=== PATIENT | female | born 1955 | race Caucasian/White ===

== ENCOUNTER → 2021-02-07 | Outpatient (CLI) | payer MEDICARE ==
--- NOTE | 2021-02-07 15:51 | REP ---
INDICATION: RIGHT UPPER QUADRANT ABDOMINAL TENDERNESS-LAB FIRST. COMPARISON: None. TECHNIQUE: Two AP views abdomen and pelvis. FINDINGS: No significantly dilated bowel loops are seen. There is no evidence of bowel obstruction. Multiple small phleboliths are seen in the pelvis. There are mild degenerative changes of the spine. IMPRESSION: No evidence of bowel obstruction. <Electronically signed by Ivan Kemp > 02/07/21 [id number]
[2021-02-07 16:15] LABS: BASO % 0.5 % (0.0-1.0); EOS % 0.5 % (0.0-3.0); HEMATOCRIT 40.6 % (36.0-47.0); HEMOGLOBIN 13.6 g/dl (12.0-15.5); LYMPH # 1.5 10^3/uL (1.5-5.0); LYMPH % 23.3 % (24.0-44.0); MEAN CORPUSCULAR HEMOGLOBIN 30.5 pg (27.0-33.0); MEAN CORPUSCULAR HGB CONC 33.5 g/dl (32.0-36.5); MONO # 0.5 10^3/uL (0.0-0.8); MONO % 7.7 % (2.0-8.0); NEUTROPHILS # 4.4 10^3/uL (1.5-8.5); NEUTROPHILS % 67.4 % (36.0-66.0); PLATELET COUNT, AUTOMATED 200 10^3/uL (150-450); RED BLOOD COUNT 4.46 10^6/uL (4.00-5.40); WHITE BLOOD COUNT 6.5 10^3/uL (4.0-10.0)
[2021-02-07 16:38] LABS: ALBUMIN 4.4 GM/DL (3.2-5.2); ALT/SGPT 51 U/L (12-78); AMYLASE 95 U/L (25-115); BILIRUBIN,TOTAL 0.9 MG/DL (0.2-1.0); BLOOD UREA NITROGEN 21 MG/DL (7-18); CALCIUM LEVEL 9.2 MG/DL (8.8-10.2); CARBON DIOXIDE LEVEL 27 MEQ/L (21-32); CHLORIDE LEVEL 103 MEQ/L (98-107); CREATININE FOR GFR 0.93 MG/DL (0.55-1.30); GLOMERULAR FILTRATION RATE > 60.0 (>45); GLUCOSE, FASTING 134 MG/DL (70-100); LIPASE 252 U/L (73-393); POTASSIUM SERUM 4.7 MEQ/L (3.5-5.1); SODIUM LEVEL 137 MEQ/L (136-145); TOTAL PROTEIN 7.1 GM/DL (6.4-8.2)
== END ==
LOC: M LAB 15:08
PROVIDERS: ATTEND Physician Assistant
DX: R10.811 Right upper quadrant abdominal tenderness (principal)

== ENCOUNTER → 2021-02-07 | Outpatient (REF) | payer MEDICARE | LOC: M LAB REF 16:23 | PROVIDERS: ATTEND Physician Assistant | DX: R10.811 Right upper quadrant abdominal tenderness (principal) ==

== ENCOUNTER → 2021-02-12 | Outpatient (CLI) | payer MEDICARE ==
[~2021-02-12] MED LIST: ISOVUE-370 76% 100ML VIAL As Ordered ONE
--- NOTE | 2021-02-12 11:08 | REP ---
INDICATION: KIDNEY STONES, RUQ PAIN. COMPARISON: None. TECHNIQUE: Contrast dose: 100 ML of Isovue [address] technique: Pre contrast abdomen and pelvis, and dual phase post-contrast helical scanning of the abdomen is acquired. 3 mm axial images re-formatted. Coronal and sagittal MPR images are included. 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 The lung bases are clear. Patient is status post left mastectomy. There are opaque gallstones layering in the dependent portion of the gallbladder. No adrenal lesion is seen. The liver and the spleen are unremarkable. No abnormality is noted in the pancreas. There is a descending duodenal diverticulum which is fairly large noted incidentally. There are multiple small calcific densities at the corticomedullary junction bilaterally in the kidneys consistent with nephrolithiasis. The largest of these is a 3 mm calculus at the right kidney midpole level. There is no evidence of hydronephrosis on either side. There are 2 simple cysts in the right kidney. These measure 4.5 and 3.5 cm in greatest diameter respectively. The right kidney is otherwise intact. The left kidney is atrophic with multifocal cortical scarring most prominent in its upper pole. Question reflux nephropathy. No ureteral stone is visible. No bladder calculus is seen. No uterine or ovarian mass is observed. There is left colonic diverticulosis without CT evidence of diverticulitis. IMPRESSION: 1. Cholelithiasis. 2. Bilateral intrarenal nephrolithiasis without hydronephrosis. 3. 2 simple cysts right kidney 4. Moderate multifocal cortical scarring left kidney. No evidence of obstructive uropathy. 5. Left colonic diverticulosis without CT evidence of diverticulitis. <Electronically signed by Shahid Jamil > 02/12/21 [id number]
== END ==
LOC: M RAD 10:16
PROVIDERS: ATTEND Physician Assistant
DX: N20.0 Calculus of kidney (principal)
CPT/HCPCS: 74178; Q9967